=== PATIENT | female | born 1980 | race Caucasian/White ===

== ENCOUNTER 2018-12-27 02:56 | Emergency (ER) | payer SELFPAY ==
[2018-12-27] MEDS ORDERED: Ibuprofen 200 MG TAB ONE (03:30)
== END 2018-12-27 03:44 | disposition home or self-care (01) ==
LOC: ERS 02:56
DX: L02.214 Cutaneous abscess of groin (principal); F17.210 Nicotine dependence, cigarettes, uncomplicated
CPT/HCPCS: 99282

== ENCOUNTER 2021-12-22 23:11 | Inpatient (IN) | payer OTHER, SELFPAY ==
[2021-12-22] MEDS ORDERED: Morphine 4 MG/ML VIAL ONE (23:35)
[2021-12-22] MEDS ORDERED: Ondansetron PF 4 MG/2 ML Vial ONE (23:35)
[2021-12-22] MEDS ORDERED: diphenhydrAMINE 50 MG/ML VIAL ONE (23:54)
[2021-12-23] MEDS ORDERED: ANTIVENIN,CROTALIDAE (ANAVIP) 10 EACH in Sodium Chloride 0.9% 250 ML 250 ML IVPB SCH ×2 (00:15→08:00)
[2021-12-23 00:22] LABS: #Basophils 0.1 thou/uL (0.0-0.2); #Eosinphils 0.1 thou/uL (0.0-0.7); #Lymphocytes 2.1 thou/uL (1.20-3.40); #Monocytes 0.5 thou/uL (0.11-0.59); #Neutrophils 7.2 thou/uL (1.40-6.50); %Basophils 0.8 % (0.0-1.0); %Eosinophils 0.9 % (0.0-10.0); %Monocytes 5.3 % (0.0-10.0); %Neutrophils 71.9 % (42.0-75.0); Mean Corpuscular HGB CONC 33.5 g/dL (32.0-36.0); Mean Corpuscular Hemoglobin 34.9 pg (27.0-31.0); Mean Platelet Volume 8.4 fL (7.4-10.4); Platelet Count 262 thou/uL (130-400); RBC Distribution Width 12.1 % (11.5-14.5); Red Blood Cell (RBC) Count 4.01 mill/uL (4.20-5.40)
[2021-12-23] MEDS ORDERED: Morphine 4 MG/ML VIAL ONE ×4 (00:32→05:19)
[2021-12-23 00:34] LABS: INR-International Normal Ratio 1.1; PTT 28.6 sec (22.9-36.1); Prothrombin Time 13.9 sec (12.0-14.7)
[2021-12-23 00:46] LABS: ALT (SGPT) 25 U/L (8-55); AST (SGOT) 24 U/L (5-34); Albumin 4.4 g/dL (3.5-5.0); Alkaline Phosphatase 60 U/L (40-110); Anion Gap 13 mmol/L (10-20); BUN (Urea Nitrogen) 17 mg/dL (7.0-18.7); Bilirubin, Total 0.4 mg/dL (0.2-1.2); CK (CPK) 69 U/L (29-168); Calc. Creatinine Clearance 0 mL/min (70-130); Calcium 9.8 mg/dL (7.8-10.44); Carbon Dioxide 26 mmol/L (22-29); Chloride 107 mmol/L (98-107); Estimated GFR 98; Globulin 2.8 g/dL (2.4-3.5); Glucose 105 mg/dL (70-105); Potassium 3.5 mmol/L (3.5-5.1); Protein, Total 7.2 g/dL (6.0-8.3); Sodium 142 mmol/L (136-145)
[2021-12-23] MEDS ORDERED: Boostrix 0.5 ML (Tdap) VIAL ONE (01:56)
[2021-12-23] MEDS ORDERED: Morphine 4 MG/ML VIAL SLOW IVP PRN (02:05)
[2021-12-23 02:10] LABS: Bilirubin Negative (Negative); Blood, Urine Negative (Negative); Clarity Clear (Clear); Glucose, Urine (Dipstick) Normal (Negative); Ketone, Urine Negative (Negative); Leukocyte Negative Leu/uL (Negative); Nitrite Negative (Negative); Protein, Urine (Dipstick) Negative (Neg-Trace); Specific Gravity, Urine 1.013 (1.002-1.036); Urobilinogen Normal mg/dL (Less than 2); pH, Urine 5.5 (5.0-9.0)
[2021-12-23] MEDS ORDERED: Magnesium 2 GM/50 ML BAG (IN WATER) ONE (02:51)
[2021-12-23 06:03] VITALS: BMI 29.1
[2021-12-23] MEDS ORDERED: Fentanyl 100 MCG/2 ML VIAL SLOW IVP SCH (06:45)
[2021-12-23 07:13] LABS: #Eosinphils 0.1 thou/uL (0.0-0.7); #Lymphocytes 2.1 thou/uL (1.20-3.40); #Monocytes 0.7 thou/uL (0.11-0.59); #Neutrophils 10.9 thou/uL (1.40-6.50); %Basophils 0.2 % (0.0-1.0); %Eosinophils 0.6 % (0.0-10.0); %Monocytes 5.2 % (0.0-10.0); %Neutrophils 79.1 % (42.0-75.0); Hemoglobin 12.9 g/dL (12.0-16.0); Mean Corpuscular HGB CONC 32.3 g/dL (32.0-36.0); Mean Platelet Volume 8.1 fL (7.4-10.4); Platelet Count 262 thou/uL (130-400); RBC Distribution Width 12.1 % (11.5-14.5); Red Blood Cell (RBC) Count 3.81 mill/uL (4.20-5.40); White Blood Cell (WBC) Count 13.8 thou/uL (4.8-10.8)
[2021-12-23 07:24] LABS: INR-International Normal Ratio 1.1; PTT 27.5 sec (22.9-36.1); Prothrombin Time 14.4 sec (12.0-14.7)
[2021-12-23 07:36] LABS: ALT (SGPT) 22 U/L (8-55); AST (SGOT) 20 U/L (5-34); Albumin 3.9 g/dL (3.5-5.0); Alkaline Phosphatase 56 U/L (40-110); Anion Gap 12 mmol/L (10-20); BUN (Urea Nitrogen) 15 mg/dL (7.0-18.7); Bilirubin, Total 0.7 mg/dL (0.2-1.2); Calc. Creatinine Clearance 125 mL/min (70-130); Calcium 8.8 mg/dL (7.8-10.44); Carbon Dioxide 24 mmol/L (22-29); Chloride 110 mmol/L (98-107); Estimated GFR 113; Globulin 2.4 g/dL (2.4-3.5); Glucose 102 mg/dL (70-105); Potassium 3.8 mmol/L (3.5-5.1); Protein, Total 6.3 g/dL (6.0-8.3); Sodium 142 mmol/L (136-145)
[2021-12-23] MEDS ORDERED: Fentanyl 100 MCG/2 ML VIAL SLOW IVP PRN (10:28)
[2021-12-23] MEDS: Acetaminophen 325 MG TAB PO PRN (10:43)
[2021-12-23 15:07] LABS: #Basophils 0.1 thou/uL (0.0-0.2); #Eosinphils 0.1 thou/uL (0.0-0.7); #Lymphocytes 2.8 thou/uL (1.20-3.40); #Monocytes 0.6 thou/uL (0.11-0.59); #Neutrophils 6.2 thou/uL (1.40-6.50); %Basophils 0.7 % (0.0-1.0); %Eosinophils 1.2 % (0.0-10.0); %Lymphocytes 29.1 % (21.0-51.0); %Monocytes 5.8 % (0.0-10.0); %Neutrophils 63.2 % (42.0-75.0); Hemoglobin 12.5 g/dL (12.0-16.0); Mean Corpuscular HGB CONC 33.6 g/dL (32.0-36.0); Mean Corpuscular Hemoglobin 35.3 pg (27.0-31.0); Mean Platelet Volume 7.9 fL (7.4-10.4); Platelet Count 253 thou/uL (130-400); RBC Distribution Width 11.9 % (11.5-14.5); Red Blood Cell (RBC) Count 3.55 mill/uL (4.20-5.40); White Blood Cell (WBC) Count 9.7 thou/uL (4.8-10.8)
[2021-12-23 15:18] LABS: INR-International Normal Ratio 1.2; PTT 27.9 sec (22.9-36.1); Prothrombin Time 14.8 sec (12.0-14.7)
[2021-12-23] MEDS ORDERED: Bupivacaine PF 0.5% 30 ML VIAL ONE (15:32)
[2021-12-23] MEDS ORDERED: Neomycin-Polymyxin 1 ML AMP ONE (15:32)
[2021-12-23] MEDS ORDERED: Bacitracin Zinc Ointment 30 gm TUBE ONE (15:32)
[2021-12-23] MEDS ORDERED: HYDROmorphone 0.5 MG/0.5 ML SYRINGE ONE (15:51)
[2021-12-23] MEDS ORDERED: Promethazine HCl 25 MG/ML VIAL ONE (15:52)
[2021-12-23] MEDS ORDERED: fentaNYL Citrate/PF 100 MCG/2 ML SYRINGE ONE (15:52)
[2021-12-23] MEDS ORDERED: Ketorolac Tromethamine 30 MG/ML VIAL ONE (16:07)
[2021-12-23] MEDS ORDERED: Lidocaine 1% PF 5 ML VIAL ONE (16:07)
[2021-12-23] MEDS ORDERED: ePHEDrine 50 MG/ML VIAL ONE (16:07)
[2021-12-23] MEDS ORDERED: Rocuronium Bromide 10 MG/ML (10ML VIAL) ONE (16:07)
[2021-12-23] MEDS ORDERED: PROPOFOL 200 MG/20 ML VIAL ONE (16:07)
[2021-12-23] MEDS ORDERED: Ondansetron PF 4 MG/2 ML Vial ONE (16:07)
[2021-12-23] MEDS ORDERED: Dexamethasone 20 MG/5 ML VIAL ONE (16:07)
[2021-12-23] MEDS ORDERED: Thrombin 5000 UNITS/5 ML VIAL ONE (16:34)
[2021-12-23] MEDS ORDERED: SUGAMMADEX SODIUM 200 MG/2 ML VIAL ONE (16:47)
[2021-12-23] MEDS ORDERED: Fentanyl 100 MCG/2 ML VIAL ONE (17:45)
[2021-12-23] MEDS: Morphine 4 MG/ML VIAL SLOW IVP PRN ×2 (19:27→23:38)
[2021-12-23] MEDS: D5W IVPB SCH (21:37)
[2021-12-23] MEDS: CLINDAMYCIN IVPB SCH (21:37)
[2021-12-23] MEDS ORDERED: GENTAMICIN SULFATE IVPB SCH (22:00)
[2021-12-23] MEDS: GENTAMICIN SULFATE IVPB SCH (22:48)
[2021-12-24] MEDS: Morphine 4 MG/ML VIAL SLOW IVP PRN ×5 (04:18→21:47)
[2021-12-24] MEDS: D5W IVPB SCH ×3 (05:21→21:48)
[2021-12-24] MEDS: CLINDAMYCIN IVPB SCH ×3 (05:21→21:48)
[2021-12-24] MEDS: GENTAMICIN SULFATE IVPB SCH ×3 (06:36→22:33)
[2021-12-24 09:04] LABS: Hemoglobin A1c 5.1 % (4.0-6.0)
[2021-12-24] MEDS: Acetaminophen 325 MG TAB PO PRN (11:18)
[2021-12-24 14:37] LABS: #Lymphocytes 1.5 thou/uL (1.20-3.40); #Monocytes 0.6 thou/uL (0.11-0.59); #Neutrophils 8.4 thou/uL (1.40-6.50); %Basophils 0.2 % (0.0-1.0); %Eosinophils 0.2 % (0.0-10.0); %Lymphocytes 14.4 % (21.0-51.0); %Monocytes 5.3 % (0.0-10.0); %Neutrophils 79.9 % (42.0-75.0); Hemoglobin 11.5 g/dL (12.0-16.0); Mean Corpuscular Hemoglobin 33.9 pg (27.0-31.0); Mean Platelet Volume 8.5 fL (7.4-10.4); Platelet Count 245 thou/uL (130-400); RBC Distribution Width 11.7 % (11.5-14.5); Red Blood Cell (RBC) Count 3.39 mill/uL (4.20-5.40); White Blood Cell (WBC) Count 10.5 thou/uL (4.8-10.8)
[2021-12-24 14:47] LABS: ALT (SGPT) 37 U/L (8-55); AST (SGOT) 33 U/L (5-34); Albumin 3.5 g/dL (3.5-5.0); Alkaline Phosphatase 58 U/L (40-110); Anion Gap 15 mmol/L (10-20); BUN (Urea Nitrogen) 8 mg/dL (7.0-18.7); Bilirubin, Total 0.5 mg/dL (0.2-1.2); Calc. Creatinine Clearance 135 mL/min (70-130); Calcium 8.7 mg/dL (7.8-10.44); Carbon Dioxide 23 mmol/L (22-29); Chloride 106 mmol/L (98-107); Estimated GFR 115; Globulin 2.1 g/dL (2.4-3.5); Glucose 127 mg/dL (70-105); Magnesium 1.7 mg/dL (1.6-2.6); Potassium 3.9 mmol/L (3.5-5.1); Protein, Total 5.6 g/dL (6.0-8.3); Sodium 140 mmol/L (136-145)
[2021-12-24] MEDS ORDERED: HYDROcodone/Acetaminophen 5/325 mg Tablet PO PRN (15:04)
[2021-12-24] MEDS ORDERED: Senokot S 8.6-50 MG TAB PO PRN (15:05)
[2021-12-24] MEDS ORDERED: Polyethylene Glycol 3350 17 GM Packet PO PRN (15:06)
[2021-12-24] MEDS ORDERED: Meperidine HCl/PF 25 MG/ML VIAL IM PRN (16:10)
[2021-12-24] MEDS: HYDROcodone/Acetaminophen 7.5/325 mg Tablet PO PRN ×2 (17:26→19:36)
[2021-12-25] MEDS: HYDROcodone/Acetaminophen 7.5/325 mg Tablet PO PRN ×6 (01:59→22:30)
[2021-12-25] MEDS: Morphine 4 MG/ML VIAL SLOW IVP PRN ×4 (05:13→21:50)
[2021-12-25] MEDS: D5W IVPB SCH ×3 (05:14→21:50)
[2021-12-25] MEDS: CLINDAMYCIN IVPB SCH ×3 (05:14→21:50)
[2021-12-25] MEDS: GENTAMICIN SULFATE IVPB SCH ×3 (05:56→22:33)
[2021-12-25 06:06] LABS: #Eosinphils 0.1 thou/uL (0.0-0.7); #Lymphocytes 2.5 thou/uL (1.20-3.40); #Monocytes 0.4 thou/uL (0.11-0.59); #Neutrophils 3.3 thou/uL (1.40-6.50); %Basophils 0.7 % (0.0-1.0); %Eosinophils 1.4 % (0.0-10.0); %Lymphocytes 39.7 % (21.0-51.0); %Monocytes 6.7 % (0.0-10.0); %Neutrophils 51.5 % (42.0-75.0); Mean Corpuscular HGB CONC 33.6 g/dL (32.0-36.0); Mean Corpuscular Hemoglobin 34.3 pg (27.0-31.0); Mean Platelet Volume 8.1 fL (7.4-10.4); Platelet Count 207 thou/uL (130-400); RBC Distribution Width 11.8 % (11.5-14.5); White Blood Cell (WBC) Count 6.4 thou/uL (4.8-10.8)
[2021-12-25 06:29] LABS: ALT (SGPT) 139 U/L (8-55); AST (SGOT) 158 U/L (5-34); Albumin 3.5 g/dL (3.5-5.0); Alkaline Phosphatase 73 U/L (40-110); Anion Gap 11 mmol/L (10-20); BUN (Urea Nitrogen) 14 mg/dL (7.0-18.7); Bilirubin, Total 0.8 mg/dL (0.2-1.2); CK (CPK) 79 U/L (29-168); Calc. Creatinine Clearance 124 mL/min (70-130); Calcium 8.7 mg/dL (7.8-10.44); Carbon Dioxide 27 mmol/L (22-29); Cardiac Risk 4.5 (Less than 4.5); Chloride 105 mmol/L (98-107); Cholesterol 186 mg/dl (< 200 Desired); Estimated GFR 112; Globulin 1.9 g/dL (2.4-3.5); Glucose 100 mg/dL (70-105); HDL Cholesterol 41 mg/dL (>60 Neg Risk); LDL Cholesterol, Calculated 130 mg/dL; Magnesium 1.8 mg/dL (1.6-2.6); Potassium 3.8 mmol/L (3.5-5.1); Protein, Total 5.4 g/dL (6.0-8.3); Sodium 139 mmol/L (136-145); Triglycerides 77 mg/dL (Less than 150)
[2021-12-25 08:19] LABS: INR-International Normal Ratio 1.1; PTT 25.3 sec (22.9-36.1)
[2021-12-25] MEDS ORDERED: HYDROcodone/Acetaminophen 10/325 mg Tablet PO PRN (14:21)
[2021-12-25] MEDS ORDERED: Acetaminophen 325 MG TAB PO PRN (14:24)
[2021-12-25] MEDS: Nicotine 21 MG PATCH TD SCH (21:47)
[2021-12-26] MEDS: HYDROcodone/Acetaminophen 7.5/325 mg Tablet PO PRN ×4 (01:59→18:32)
[2021-12-26] MEDS: Ondansetron PF 4 MG/2 ML Vial IVP PRN ×2 (05:19→10:28)
[2021-12-26] MEDS: Morphine 4 MG/ML VIAL SLOW IVP PRN ×3 (05:46→20:42)
[2021-12-26] MEDS: CLINDAMYCIN IVPB SCH (05:47)
[2021-12-26] MEDS: D5W IVPB SCH (05:47)
[2021-12-26] MEDS: GENTAMICIN SULFATE IVPB SCH ×3 (06:30→21:24)
[2021-12-26 07:19] LABS: #Eosinphils 0.1 thou/uL (0.0-0.7); #Lymphocytes 1.3 thou/uL (1.20-3.40); #Monocytes 0.5 thou/uL (0.11-0.59); #Neutrophils 4.7 thou/uL (1.40-6.50); %Basophils 0.6 % (0.0-1.0); %Eosinophils 1.5 % (0.0-10.0); %Lymphocytes 19.7 % (21.0-51.0); %Monocytes 7.2 % (0.0-10.0); %Neutrophils 70.9 % (42.0-75.0); Hemoglobin 9.5 g/dL (12.0-16.0); Mean Corpuscular HGB CONC 33.7 g/dL (32.0-36.0); Mean Corpuscular Hemoglobin 35.1 pg (27.0-31.0); Mean Platelet Volume 8.5 fL (7.4-10.4); Platelet Count 193 thou/uL (130-400); RBC Distribution Width 11.7 % (11.5-14.5); White Blood Cell (WBC) Count 6.6 thou/uL (4.8-10.8)
[2021-12-26 07:35] LABS: INR-International Normal Ratio 1.2; PTT 31.7 sec (22.9-36.1); Prothrombin Time 15.4 sec (12.0-14.7)
[2021-12-26 07:49] LABS: HBCM Index 0.14 S/CO (0-0.79); HBSAg Index 0.25 S/CO (0-0.99); Hep A IgM AB Non-Reactive (NonReactive); Hep B Surf Ag Non-Reactive S/CO (NonReactive); Hep C IgG Ab Non-Reactive (NonReactive); Hep C Index 0.05 S/CO (0-0.79); Hepatitis B Core IgM Abs Non-Reactive (NonReactive)
[2021-12-26] MEDS: Enoxaparin Sodium 40 MG/0.4 ML SYRINGE SC SCH (08:19)
[2021-12-26 08:58] LABS: Albumin 3.5 g/dL (3.5-5.0)
[2021-12-26 08:59] LABS: Chloride 103 mmol/L (98-107); Potassium 3.6 mmol/L (3.5-5.1); Sodium 142 mmol/L (136-145)
[2021-12-26 09:00] LABS: Calcium 8.8 mg/dL (7.8-10.44)
[2021-12-26 09:01] LABS: Globulin 2.3 g/dL (2.4-3.5); Glucose 94 mg/dL (70-105); Protein, Total 5.8 g/dL (6.0-8.3)
[2021-12-26 09:02] LABS: Anion Gap 13 mmol/L (10-20); Carbon Dioxide 30 mmol/L (22-29)
[2021-12-26 09:04] LABS: Alkaline Phosphatase 91 U/L (40-110); Calc. Creatinine Clearance 127 mL/min (70-130); Estimated GFR 113
[2021-12-26 09:05] LABS: BUN (Urea Nitrogen) 8 mg/dL (7.0-18.7)
[2021-12-26 09:06] LABS: AST (SGOT) 81 U/L (5-34); Magnesium 1.9 mg/dL (1.6-2.6)
[2021-12-26 09:07] LABS: ALT (SGPT) 139 U/L (8-55); CK (CPK) 76 U/L (29-168)
[2021-12-26] MEDS ORDERED: Sodium Chloride 0.9% 1,000 ML IV SCH (11:45)
[2021-12-26] MEDS ORDERED: diphenhydrAMINE 25 MG in Sodium Chloride 0.9% 50 ML IVPB SCH (11:45)
[2021-12-26] MEDS: Nicotine 21 MG PATCH TD SCH (20:42)
[2021-12-26] MEDS: Clindamycin/D5W 900 MG in Premix Bag 1 BAG IVPB SCH (20:49)
[2021-12-27] MEDS: HYDROcodone/Acetaminophen 7.5/325 mg Tablet PO PRN ×4 (02:14→21:11)
[2021-12-27] MEDS: Clindamycin/D5W 900 MG in Premix Bag 1 BAG IVPB SCH ×3 (04:37→22:40)
[2021-12-27] MEDS: GENTAMICIN SULFATE IVPB SCH ×3 (05:15→21:14)
[2021-12-27] MEDS: Morphine 4 MG/ML VIAL SLOW IVP PRN (05:21)
[2021-12-27 06:52] LABS: #Basophils 0.1 thou/uL (0.0-0.2); #Eosinphils 0.2 thou/uL (0.0-0.7); #Lymphocytes 1.6 thou/uL (1.20-3.40); #Monocytes 0.5 thou/uL (0.11-0.59); %Basophils 1.1 % (0.0-1.0); %Eosinophils 2.9 % (0.0-10.0); %Lymphocytes 30.5 % (21.0-51.0); %Monocytes 10.1 % (0.0-10.0); %Neutrophils 55.5 % (42.0-75.0); Hemoglobin 10.2 g/dL (12.0-16.0); Mean Corpuscular HGB CONC 32.5 g/dL (32.0-36.0); Mean Corpuscular Hemoglobin 33.4 pg (27.0-31.0); Mean Platelet Volume 8.5 fL (7.4-10.4); Platelet Count 219 thou/uL (130-400); RBC Distribution Width 11.7 % (11.5-14.5); Red Blood Cell (RBC) Count 3.05 mill/uL (4.20-5.40); White Blood Cell (WBC) Count 5.4 thou/uL (4.8-10.8)
[2021-12-27 06:58] LABS: INR-International Normal Ratio 1.2; PTT 28.8 sec (22.9-36.1); Prothrombin Time 15.1 sec (12.0-14.7)
[2021-12-27 07:22] LABS: ALT (SGPT) 99 U/L (8-55); AST (SGOT) 45 U/L (5-34); Albumin 3.1 g/dL (3.5-5.0); Alkaline Phosphatase 90 U/L (40-110); Anion Gap 15 mmol/L (10-20); BUN (Urea Nitrogen) 7 mg/dL (7.0-18.7); Bilirubin, Total 1.1 mg/dL (0.2-1.2); Calc. Creatinine Clearance 138 mL/min (70-130); Calcium 7.9 mg/dL (7.8-10.44); Carbon Dioxide 21 mmol/L (22-29); Chloride 106 mmol/L (98-107); Estimated GFR 115; Globulin 2.1 g/dL (2.4-3.5); Glucose 93 mg/dL (70-105); Magnesium 1.7 mg/dL (1.6-2.6); Potassium 3.3 mmol/L (3.5-5.1); Protein, Total 5.2 g/dL (6.0-8.3); Sodium 139 mmol/L (136-145)
[2021-12-27] MEDS: Enoxaparin Sodium 40 MG/0.4 ML SYRINGE SC SCH (08:08)
[2021-12-27] MEDS ORDERED: Potassium Chloride 20 MEQ TAB PO SCH (13:45)
[2021-12-27] MEDS: Nicotine 21 MG PATCH TD SCH (21:14)
[2021-12-28] MEDS: HYDROcodone/Acetaminophen 7.5/325 mg Tablet PO PRN ×2 (04:44→21:38)
[2021-12-28] MEDS: GENTAMICIN SULFATE IVPB SCH ×3 (04:47→22:26)
[2021-12-28] MEDS: Clindamycin/D5W 900 MG in Premix Bag 1 BAG IVPB SCH ×3 (05:57→21:36)
[2021-12-28 06:12] LABS: #Basophils 0.1 thou/uL (0.0-0.2); #Eosinphils 0.2 thou/uL (0.0-0.7); #Lymphocytes 1.5 thou/uL (1.20-3.40); #Monocytes 0.7 thou/uL (0.11-0.59); #Neutrophils 3.7 thou/uL (1.40-6.50); %Basophils 0.9 % (0.0-1.0); %Eosinophils 2.5 % (0.0-10.0); %Lymphocytes 24.9 % (21.0-51.0); %Monocytes 11.5 % (0.0-10.0); %Neutrophils 60.2 % (42.0-75.0); Hemoglobin 11.8 g/dL (12.0-16.0); Mean Corpuscular HGB CONC 34.5 g/dL (32.0-36.0); Mean Corpuscular Hemoglobin 35.4 pg (27.0-31.0); Mean Platelet Volume 8.2 fL (7.4-10.4); Platelet Count 248 thou/uL (130-400); RBC Distribution Width 11.9 % (11.5-14.5); Red Blood Cell (RBC) Count 3.35 mill/uL (4.20-5.40); White Blood Cell (WBC) Count 6.2 thou/uL (4.8-10.8)
[2021-12-28 06:24] LABS: INR-International Normal Ratio 1.1; PTT 27.2 sec (22.9-36.1); Prothrombin Time 13.8 sec (12.0-14.7)
[2021-12-28 06:36] LABS: ALT (SGPT) 101 U/L (8-55); AST (SGOT) 43 U/L (5-34); Albumin 3.5 g/dL (3.5-5.0); Alkaline Phosphatase 109 U/L (40-110); Anion Gap 12 mmol/L (10-20); BUN (Urea Nitrogen) 8 mg/dL (7.0-18.7); Calc. Creatinine Clearance 127 mL/min (70-130); Calcium 8.9 mg/dL (7.8-10.44); Carbon Dioxide 25 mmol/L (22-29); Chloride 104 mmol/L (98-107); Estimated GFR 113; Globulin 2.7 g/dL (2.4-3.5); Glucose 105 mg/dL (70-105); Magnesium 1.9 mg/dL (1.6-2.6); Potassium 4.2 mmol/L (3.5-5.1); Protein, Total 6.2 g/dL (6.0-8.3); Sodium 137 mmol/L (136-145)
[2021-12-28] MEDS: Enoxaparin Sodium 40 MG/0.4 ML SYRINGE SC SCH (07:47)
[2021-12-28 13:37] LABS: Hematocrit 31.2 % (34.0-46.6); RBC Folate Test Component 971 ng/mL (>498)
[2021-12-28] MEDS ORDERED: Bacitracin Zinc Ointment 30 gm TUBE ONE (16:29)
[2021-12-28] MEDS ORDERED: Mineral Oil Sterile 10 ML VIAL ONE (16:29)
[2021-12-28] MEDS ORDERED: Bupivacaine PF 0.5% 30 ML VIAL ONE (16:29)
[2021-12-28] MEDS ORDERED: fentaNYL Citrate/PF 100 MCG/2 ML SYRINGE ONE ×2 (16:34→18:04)
[2021-12-28] MEDS ORDERED: Lidocaine 1% PF 5 ML VIAL ONE (16:41)
[2021-12-28] MEDS ORDERED: Ondansetron PF 4 MG/2 ML Vial ONE (16:41)
[2021-12-28] MEDS ORDERED: ePHEDrine 50 MG/ML VIAL ONE (16:41)
[2021-12-28] MEDS ORDERED: PROPOFOL 200 MG/20 ML VIAL ONE (16:41)
[2021-12-28] MEDS ORDERED: Dexamethasone 20 MG/5 ML VIAL ONE (16:41)
[2021-12-28] MEDS ORDERED: Morphine 4 MG/ML VIAL SLOW IVP PRN (19:40)
[2021-12-28] MEDS ORDERED: Acetaminophen 325 MG TAB PO PRN (19:45)
[2021-12-28] MEDS: Nicotine 21 MG PATCH TD SCH (21:11)
[2021-12-28 21:12] VITALS: TEMP 98
[2021-12-29] MEDS: HYDROcodone/Acetaminophen 7.5/325 mg Tablet PO PRN ×2 (05:55→08:31)
[2021-12-29] MEDS: GENTAMICIN SULFATE IVPB SCH (05:57)
[2021-12-29] MEDS: Clindamycin/D5W 900 MG in Premix Bag 1 BAG IVPB SCH (05:57)
[2021-12-29 06:39] LABS: #Eosinphils 0.1 thou/uL (0.0-0.7); #Lymphocytes 1.7 thou/uL (1.20-3.40); #Monocytes 0.9 thou/uL (0.11-0.59); #Neutrophils 7.5 thou/uL (1.40-6.50); %Basophils 0.5 % (0.0-1.0); %Eosinophils 0.6 % (0.0-10.0); %Lymphocytes 16.4 % (21.0-51.0); %Monocytes 8.4 % (0.0-10.0); Mean Corpuscular HGB CONC 33.8 g/dL (32.0-36.0); Mean Corpuscular Hemoglobin 34.8 pg (27.0-31.0); Mean Platelet Volume 8.2 fL (7.4-10.4); Platelet Count 329 thou/uL (130-400); RBC Distribution Width 12.1 % (11.5-14.5); Red Blood Cell (RBC) Count 3.73 mill/uL (4.20-5.40); White Blood Cell (WBC) Count 10.2 thou/uL (4.8-10.8)
[2021-12-29 06:47] LABS: PTT 26.2 sec (22.9-36.1); Prothrombin Time 13.7 sec (12.0-14.7)
[2021-12-29 07:13] LABS: ALT (SGPT) 81 U/L (8-55); AST (SGOT) 36 U/L (5-34); Albumin 3.8 g/dL (3.5-5.0); Alkaline Phosphatase 118 U/L (40-110); Anion Gap 19 mmol/L (10-20); BUN (Urea Nitrogen) 9 mg/dL (7.0-18.7); Bilirubin, Total 0.7 mg/dL (0.2-1.2); Calc. Creatinine Clearance 122 mL/min (70-130); Calcium 9.3 mg/dL (7.8-10.44); Carbon Dioxide 18 mmol/L (22-29); Chloride 104 mmol/L (98-107); Estimated GFR 112; Globulin 3.4 g/dL (2.4-3.5); Glucose 118 mg/dL (70-105); Magnesium 2.1 mg/dL (1.6-2.6); Potassium 4.1 mmol/L (3.5-5.1); Protein, Total 7.2 g/dL (6.0-8.3); Sodium 137 mmol/L (136-145)
[2021-12-29] MEDS: Enoxaparin Sodium 40 MG/0.4 ML SYRINGE SC SCH (08:32)
[2021-12-29 08:51] VITALS: BP 119/74
== END 2021-12-29 10:30 | disposition home or self-care (01) | DRG 906 ==
LOC: ERS 23:11 → 2SW 12-23 05:39 → OBSVTOIN 12-23 12:31 → SURG A 12-23 16:09 → T4-B 12-23 18:35
PROVIDERS: ADMIT Internal Medicine; ATTEND Family Medicine
PROC: 0JCJ0ZZ Extirpation of Matter from Right Hand Subcutaneous Tissue and Fascia, Open Approach (ICD-10-PCS; principal; 2021-12-23)
PROC: 0L970ZZ Drainage of Right Hand Tendon, Open Approach (ICD-10-PCS; 2021-12-23)
PROC: 0KN90ZZ Release Right Lower Arm and Wrist Muscle, Open Approach (ICD-10-PCS; 2021-12-23)
PROC: 0KN90ZZ Release Right Lower Arm and Wrist Muscle, Open Approach (ICD-10-PCS; 2021-12-23)
PROC: 0JBJ0ZZ Excision of Right Hand Subcutaneous Tissue and Fascia, Open Approach (ICD-10-PCS; 2021-12-28)
DX: T63.011A Toxic effect of rattlesnake venom, accidental (unintentional), initial encounter (principal); T79.A11A Traumatic compartment syndrome of right upper extremity, initial encounter; L03.113 Cellulitis of right upper limb; L02.511 Cutaneous abscess of right hand; I96 Gangrene, not elsewhere classified; F17.210 Nicotine dependence, cigarettes, uncomplicated; R11.2 Nausea with vomiting, unspecified; T50.995A Adverse effect of other drugs, medicaments and biological substances, initial encounter; Z20.822 Contact with and (suspected) exposure to COVID-19; Y92.89 Other specified places as the place of occurrence of the external cause; Z88.5 Allergy status to narcotic agent; Z88.1 Allergy status to other antibiotic agents; Z90.49 Acquired absence of other specified parts of digestive tract; Z98.51 Tubal ligation status
CPT/HCPCS: 36415; 71045; 76705; 80053; 80061; 80074; 81003; 82550; 82607; 82747; 83036; 83735; 84443; 85025; 85384; 85610; 85730; 86850; 86900; 86901; 87070; 87205; 90471; 90715; 93005; 93010; 96374; 96375; 96376; G0378; J0476; J1100; J1170; J1200; J1580; J1650; J1885; J2175; J2270; J2405; J2550; J2704; J3010; J3370; J3475; J3490; J7050; S0020; U0003; U0005